=== PATIENT | male | born 1930 ===

== ENCOUNTER 2021-01-20 04:39 | Day surgery (SDC) | payer BC ==
[2021-01-19 10:51] VITALS: BMI 25.4
[2021-01-20] MEDS ORDERED: ELECTROLYTE-148 SOLN 1,000 ML IV SCH (12:00)
[2021-01-20] MEDS ORDERED: PROPOFOL 20 ML ONE (12:06)
[2021-01-20] MEDS ORDERED: KETOROLAC TROMETHAMINE 30 MG/1 ML VIAL ONE (12:06)
[2021-01-20] MEDS ORDERED: SODIUM CHLORIDE 0.9% P/F 10 ML VIAL IJ ONE (12:07)
[2021-01-20] MEDS ORDERED: ceFAZolin SODIUM 1 GM VIAL ONE (12:07)
[2021-01-20] MEDS ORDERED: ceFAZolin SODIUM 1 GM VIAL IVPB ONE (12:14)
[2021-01-20 13:30] VITALS: BP 153/91; PULSE 81; TEMP 97.7
== END 2021-01-20 13:50 | disposition home or self-care (01) ==
LOC: JASU-SURG 04:39
PROVIDERS: ATTEND Urology
PROC: 0TF4XZZ Fragmentation in Left Kidney Pelvis, External Approach (ICD-10-PCS; principal; 2021-01-20 11:30)
DX: N20.0 Calculus of kidney (principal)
CPT/HCPCS: 82962